=== PATIENT | female | born 1995 | race Caucasian/White ===

== ENCOUNTER 2018-11-09 09:02 | Outpatient (CLI) | payer OTHER | END 2018-11-09 09:03 | disposition home or self-care (01) | LOC: EMS 09:02 | PROVIDERS: ATTEND Surgery | DX: M79.652 Pain in left thigh (principal); M25.552 Pain in left hip; V48.5XXA Car driver injured in noncollision transport accident in traffic accident, initial encounter; W23.0XXA Caught, crushed, jammed, or pinched between moving objects, initial encounter; Y92.009 Unspecified place in unspecified non-institutional (private) residence as the place of occurrence of the external cause | CPT/HCPCS: A0425; A0429 ==

== ENCOUNTER 2018-11-09 09:17 | Emergency (ER) | payer OTHER ==
[2018-11-09] MEDS ORDERED: MORPHINE 2 MG/ML CARPUJECT IVP STA ×2 (09:24→11:27)
[2018-11-09] MEDS ORDERED: ONDANSETRON 4 MG/2 ML VIAL IVP STA (09:24)
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
[2018-11-09 10:15] LABS: BASOPHILS % (AUTO) 0.4 %; EOSINOPHILS # (AUTO) 0.1 10^3/uL (0.0-0.7); EOSINOPHILS % (AUTO) 1.5 %; HGB - HEMOGLOBIN 13.5 g/dL (12.0-16.0); LYMPHOCYTES # (AUTO) 1.4 10^3/uL (1.5-3.5); LYMPHOCYTES % (AUTO) 15.8 %; MEAN CORPUSCULAR HEMOGLOBIN 28.7 pg (27.0-31.0); MEAN CORPUSCULAR HGB CONC 34.1 g/dL (32.0-36.0); MEAN PLATELET VOLUME 8.8 fL (7.9-10.8); MONOCYTES # (AUTO) 0.5 10^3/uL (0.0-1.0); NEUTROPHILS # (AUTO) 6.9 10^3/uL (1.5-6.6); NEUTROPHILS % (AUTO) 76.3 %; PLT - PLATELET COUNT 230 10^3/uL (130-450); RED BLOOD COUNT 4.72 10^6/uL (4.20-5.40); RED CELL DISTRIBUTION WIDTH 13.3 % (12.0-15.0); WHITE BLOOD COUNT 9.1 x10^3/uL (4.8-10.8)
[2018-11-09 10:38] LABS: BUN - BLOOD UREA NITROGEN 14 mg/dL (6-20); CALCIUM 8.8 mg/dL (8.5-10.3); CARBON DIOXIDE - CO2 21 mmol/L (21-32); CHLORIDE 109 mmol/L (101-111); CREATININE 0.7 mg/dL (0.4-1.0); GFR - MDRD 105 (>89); GLUCOSE 99 mg/dL (70-100); SODIUM 137 mmol/L (135-145)
[2018-11-09 10:41] LABS: HCG,QUALITATIVE BLOOD NEGATIVE
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
[2018-11-09 12:32] VITALS: BP 109/63
[2018-11-09] MEDS ORDERED: KETOROLAC 30 MG/ML VIAL IVP STA (12:58)
[2018-11-09] MEDS ORDERED: oxyCODONE 5 MG TABLET PO STA (12:58)
== END 2018-11-09 13:49 | disposition home or self-care (01) ==
LOC: ED 09:17
DX: S77.22XA Crushing injury of left hip with thigh, initial encounter (principal); M54.5 Low back pain; V03.00XA Pedestrian on foot injured in collision with car, pick-up truck or van in nontraffic accident, initial encounter
CPT/HCPCS: 36415; 72100; 72170; 73552; 80048; 82550; 84703; 85025; 96374; 96375; 99283; 99284; A9270

== ENCOUNTER 2023-04-28 08:00 | Outpatient (CLI) | payer BC ==
[2023-04-28 18:14] LABS: CHLAMYDIA TRACHOMATIS DNA NEGATIVE (NEGATIVE); NEISSERIA GONORRHOEAE DNA NEGATIVE (NEGATIVE)
[2023-04-28 20:48] LABS: BACTERIAL VAGINOSIS DNA NEGATIVE (NEGATIVE); CANDIDA GLABRATA DNA POSITIVE (NEGATIVE); CANDIDA GROUP DNA NEGATIVE (NEGATIVE); CANDIDA KRUSEI DNA NEGATIVE (NEGATIVE); TRICHOMONAS VAGINALIS DNA NEGATIVE (NEGATIVE)
== END 2023-04-28 23:59 | disposition home or self-care (01) ==
LOC: LAB.WC 08:00
PROVIDERS: ATTEND Nurse Practitioner
DX: Z11.3 Encounter for screening for infections with a predominantly sexual mode of transmission (principal); Z87.42 Personal history of other diseases of the female genital tract
CPT/HCPCS: 81514; 87491; 87591; 87661